=== PATIENT | male | born 1995 | race Caucasian/White ===

== ENCOUNTER 2019-02-02 18:46 | Emergency (ER) | payer OTHER ==
[2019-02-02 18:58] VITALS: BP 148/77
--- NOTE | 2019-02-02 19:28 | ED Physician Documentation ---
PD HPI SKIN - Stated complaint Stated Complaint: SCALP RASH - Chief complaint Chief Complaint: Wound - History obtained from History obtained from: Patient - History of Present Illness Timing - onset: Other (2 years of an itchy scaly rash to the scalp with some patches in the armpit and on the back. He is been on ketoconazole without improvement.) Review of Systems Constitutional: denies: Fever, Chills Respiratory: reports: Reviewed and negative GI: reports: Reviewed and negative PD PAST MEDICAL HISTORY - Past Medical History Past Medical History: Yes Cardiovascular: None Respiratory: Asthma Neuro: None Endocrine/Autoimmune: None GI: None : None HEENT: None Psych: None Musculoskeletal: None Derm: None - Past Surgical History Past Surgical History: No - Present Medications Home Medications: Ambulatory Orders Medication Instructions Recorded Confirmed Griseofulvin, Microsize 500 mg PO DAILY #42 tablet 02/02/19 [Griseofulvin] - Allergies Allergies/Adverse Reactions: Allergies Allergy/AdvReac Type Severity Reaction Status Date / Time No Known Drug Allergies Allergy Verified 02/02/19 18:58 - Social History Does the pt smoke?: No Smoking Status: Never smoker Does the pt drink ETOH?: Yes ETOH Use: Beer Does the pt have substance abuse?: No - Immunizations Immunizations are current?: Yes - POLST Patient has POLST: No PD ED PE NORMAL - Vitals Vital signs reviewed: Yes - General General: Alert and oriented X 3, No acute distress - HEENT HEENT: Other (Severe tinea capitis with some tinea corporis on the back and armpits) - Neuro Neuro: Alert and oriented X 3, Normal speech Results - Vitals Vitals: Vital Signs - 24 hr 02/02/19 18:51 Temperature 36.3 C L Heart Rate 54 L Respiratory 16 Rate Blood Pressure 148/77 H O2 Saturation 99 Oxygen O2 Source Room air Departure - Departure Disposition: 01 Home, Self Care Clinical Impression: Tinea capitis Condition: Good Record reviewed to determine appropriate education?: Yes Instructions: ED Infec Skin Fungal Tinea Prescriptions: Griseofulvin, Microsize [Griseofulvin] 500 mg PO DAILY #42 tablet Comments: 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 Your blood pressure was elevated today on check into the emergency department. This does not mean that you have hypertension, it is a common phenomenon to come to the emergency department and have elevated blood pressure. I recommend that you see your primary care physician within the week to have it rechecked when you are feeling better.
== END 2019-02-02 19:43 | disposition home or self-care (01) ==
LOC: ED 18:46
DX: B35.0 Tinea barbae and tinea capitis (principal); B35.4 Tinea corporis; R03.0 Elevated blood-pressure reading, without diagnosis of hypertension
CPT/HCPCS: 99283

== ENCOUNTER 2019-04-10 10:47 | Emergency (ER) | payer OTHER ==
[2019-04-10 11:08] VITALS: BP 137/78
--- NOTE | 2019-04-10 12:14 | ED Physician Documentation ---
History of Present Illness - Stated complaint Stated Complaint: RASH ON HEAD - Chief complaint Chief Complaint: General - History obtained from History obtained from: Patient - Additonal information Additional information: Patient is a 24-year-old male presenting with complaint of scalp rash, as well as rash and skin changes to back and armpits bilaterally that have been occurring over the past several years. Patient has been seen by primary care physicians, dermatology, ED physicians previously and placed on antifungals without improvement of rash. Patient reports erythema, dryness, flakiness of skin, but no pain, fever, drainage, or other signs of infection. Patient denies mucous membrane involvement or other medical complaints. No other improving or worsening factors noted. Review of Systems Constitutional: denies: Fever Skin: reports: Rash PD PAST MEDICAL HISTORY - Past Medical History Cardiovascular: None Respiratory: Asthma Neuro: None Endocrine/Autoimmune: None GI: None : None HEENT: None Psych: None Musculoskeletal: None Derm: None - Past Surgical History Past Surgical History: No - Present Medications Home Medications: Ambulatory Orders Medication Instructions Recorded Confirmed Clobetasol Propionate/Emoll 1 film TP BID 14 Days foam 04/10/19 [Clobetasol Emulsion 0.05% Foam] - Allergies Allergies/Adverse Reactions: Allergies Allergy/AdvReac Type Severity Reaction Status Date / Time No Known Drug Allergies Allergy Verified 04/10/19 11:08 - Social History Does the pt smoke?: No Smoking Status: Never smoker Does the pt drink ETOH?: Yes Does the pt have substance abuse?: No - Immunizations Immunizations are current?: Yes - POLST Patient has POLST: No PD ED PE NORMAL - Vitals Vital signs reviewed: Yes - General General: Alert and oriented X 3, No acute distress, Well developed/nourished - HEENT HEENT: Atraumatic, Moist mucous membranes, Other (Scattered areas of erythema with overlying plaque and dry flaky skin to scalp that is not painful, not bleeding, does not appear infected) - Neck Neck: Supple, no meningeal sign - Respiratory Respiratory: No respiratory distress - Derm Derm: Warm and dry, Other (Quarter sized area of erythema and overlying plaque to lower back, as well as similar's changes in both armpits) - Extremities Extremities: No deformity, No tenderness to palpate - Neuro Neuro: Alert and oriented X 3, No motor deficit, No sensory deficit - Psych Psych: Normal mood, Normal affect Results - Vitals Vitals: Vital Signs - 24 hr 04/10/19 11:07 Temperature 36.3 C L Heart Rate 60 Respiratory 20 Rate Blood Pressure 137/78 H O2 Saturation 100 Oxygen O2 Source Room air PD MEDICAL DECISION MAKING - ED course Complexity details: considered differential, d/w patient ED course: Patient has been suffering from scalp changes and other skin rashes for many years and has been 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 Patient has been treated for fungal infections many times without successful resolution of symptoms.According to today's appearance, I fe el it is most likely psoriasis changes as opposed to other fungal or bacterial infection. Discussed this likely etiology with patient and prescribed foam to be used on scalp, as well as discussed other [id number] options for other areas of skin changes. Do feel it is important that patient continues to see his primary care physician and continues to receive dermatology involvement. Discussed other strict return precautions and supportive cares. Patient voiced understanding and is comfortable with discharge plan. Departure - Departure Disposition: 01 Home, Self Care Clinical Impression: Psoriasis Condition: Good Instructions: ED Psoriasis Follow-Up: your,doctor [Other] - Within 3 Days Prescriptions: Clobetasol Propionate/Emoll [Clobetasol Emulsion 0.05% Foam] 1 film TP BID 14 Days foam Comments: Please use foam and apply twice daily to a dry scalp for the next 2 weeks. May try [id number] hydrocortisone cream for other areas in the armpits and nirav k and follow instructions on bottle/box. Otherwise, keep areas clean and dry and provide hydration with moisturizers and conditioners. Please follow-up with primary care physician in next 2 to 3 days and request referral for dermatology. Return to ED sooner if experience worsening symptoms or have other
== END 2019-04-10 13:09 | disposition home or self-care (01) ==
LOC: ED 10:47
DX: L40.0 Psoriasis vulgaris (principal)
CPT/HCPCS: 99282; 99284